=== PATIENT | female | born 1975 | race Caucasian/White ===

== ENCOUNTER 2023-06-10 01:30 | Emergency (ER) | payer MEDICAID, SELFPAY ==
[2023-06-10 01:31] VITALS: BP 140/108; PULSE 104; RESP 18; TEMP 36.7; O2SAT 100; BMI 25.2
--- NOTE | 2023-06-10 02:00 | RAD_ITS ---
INDICATION: pain EXAMINATION/TECHNIQUE: X-RAY - RIGHT XR Shoulder Min 2 Views COMPARISON: None. FINDINGS: SOFT TISSUES: Unremarkable. BONES/JOINTS: No fracture or dislocation. Mild degenerative changes of the acromioclavicular joint. No erosive changes. RAD/Shoulder min 2 Views IMPRESSION: Mild AC joint degenerative change. No acute abnormality. Electronically Signed: Peewee Carey DO at 2:24 EST ,
--- NOTE | 2023-06-10 04:57 | EX.ED.UPPERE ---
HPI History of Present Illness Chief Complaint: Upper Extremity Injury Informant: patient Narrative Narrative: Patient is a 48-year-old female who reports no significant past medical history. She states she is right-hand dominant. She reports for the past 7 to 10 days she has had pain in her right side neck/shoulder region that radiates down her arm to her wrist/fingers. She states that there has been no injury but that she does do repetitive motion at work. She states that she seen a chiropractor and has not had any symptom improvement with any adjustments and has been using the TENS unit without any symptom improvement as well. Secondary to the fact that the pain has persisted she presents for evaluation [facility] Medical History no medical history no medical history Home Medications gabapentin 100 mg capsule 100 mg PO TID 30 days #90 caps 06/10/23 [Rx Last Taken Unknown] methocarbamol 500 mg tablet 1,000 mg (2 x 500 mg) PO 4X/DAY PRN PRN Muscle pain/spasm 7 days #56 tabs 06/10/23 [Rx Last Taken Unknown] oxycodone-acetaminophen 5 mg-325 mg tablet (Percocet) 1 tab PO Q6H PRN pain 3 days #12 tabs 06/10/23 [Rx Last Taken Unknown] prednisone 20 mg tablet 40 mg (2 x 20 mg) PO DAILY 7 days #14 tabs 06/10/23 [Rx Last Taken Unknown] Allergy/AdvReac Type Severity Reaction Status Date / Time No Known Allergies Allergy Verified 06/10/23 01:31 Social History Smoking Status: Current every day smoker tobacco type: e-cigarettes ROS ROS ED Constitutional Constitutional ED: Denies chills or fever(s) ENT ENT ED: Denies sore throat Cardiovascular Cardiovascular: Denies chest pain Respiratory/Chest Respiratory/Chest: Denies cough or dyspnea Gastrointestinal Gastrointestinal: Denies abdominal pain, diarrhea, nausea or vomiting Genitourinary Genitourinary ED: Denies dysuria Musculoskeletal Musculoskeletal: Reports neck pain and other Details: Positive right arm/shoulder pain ; Denies myalgias Integumentary Denies rash Neurologic Neurologic: Reports paresthesias; Denies headache(s) or weakness Hematologic/Lymphatic Hematologic/Lymphatic: Denies easy bleeding or easy bruising EXAM Physical Exam Const Vital Signs: 06/10/23 01:31 Temperature 98.1 F Temperature Source Temporal Pulse Rate 104 H Respiratory Rate 18 Blood Pressure 140/108 H Blood Pressure Mean 118 Pulse Ox 100 Oxygen Delivery Method Room Air Positive well nourished and well developed General Appearance ED: well developed HEENT HEENT Narrative: Normocephalic atraumatic Eyes PERRL and EOMs intact bilaterally Neck Neck Narrative: No bony deformity or step-off of the cervical spine no midline pain with palpation Patient has right paracervical tension and spasm noted There is positive Spurling sign on the right Resp normal respiratory effort and clear to auscultation bilaterally Cardio regular rate and regular rhythm Back/Spine Back/Spine Narrative: No bony deformity or step-off of the thoracic or lumbar spine no midline pain with palpation Extremity normal to inspection Extremity Narrative: No bony deformity or joint effusion of the right shoulder joint negative sulcus sign Right upper extremity is neurovascularly intact; AIN/PIN are intact and normal Neuro oriented x3, CN's II-XII intact bilaterally, moves all extremities, no focal motor deficits and no sensory deficits noted Sensorium / Orientation: alert Motor Exam: strength 5/5 throughout Psych mental status grossly normal Skin no rashes or lesions noted MDM MDM MDM Narrative Medical decision making narrative: Patient presented to the ER complaining of right-sided shoulder/arm pain without reported trauma that has not improved despite chiropractic treatment and time. Differential diagnosis is for shoulder sprain/strain versus rotator cuff injury versus superficial cervical radiculopathy versus compressive nerve. An x-ray was obtained secondary to the persistent pain which revealed mild arthritis but no obvious finding. As she did have positive Spurling sign there is concern that this is cervical radiculopathy and whether it is related from superficial muscle compression or potential facet arthritis or a ruptured disc it would not change emergent treatment as she is neurovascular intact and would not require any type of emergent surgery or orthopedic/spine surgery emergent consultation. Therefore patient replaced on symptomatic medications and follow-up on an outpatient basis if there is no symptom improvement History & Record Review Discussion w/independent historian: Patient Radiography Diagnostic Testing: Clinical Impression(s) from Imaging Studies Shoulder X-Ray 06/10/23 02:00 IMPRESSION: Mild AC joint degenerative change. No acute abnormality. Electronically Signed: Peewee Carey DO at 2:24 EST , Right shoulder x-ray as interpreted by the emergency medicine physician reveals mild arthritic changes without acute fracture or dislocation or joint effusion Discharge Plan Triage Chief Complaint: Upper Extremity Injury ED Provider: Sarbjit Mcgarry Dx/Rx/DC Orders Clinical Impression: Cervical radiculopathy Instructions: Radiculopathy Cervical Prescriptions: New methocarbamol 500 mg tablet 1,000 mg PO 4X/DAY PRN PRN (Reason: Muscle pain/spasm) 7 Days Qty: 56 0RF prednisone 20 mg tablet 40 mg PO DAILY 7 Days Qty: 14 0RF oxycodone-acetaminophen [Percocet] 5-325 mg tablet 1 tab PO Q6H PRN (Reason: pain) 3 Days Qty: 12 0RF gabapentin 100 mg capsule 100 mg PO TID 30 Days Qty: 90 0RF Primary Care Provider: Care Physician,No Primary Referrals: Marcus Wheeler MD [Med Staff - Active Staff] - Care Physician,No Primary [Primary Care Provider] - Activity Restrictions/Additional Instructions: Take your medications as prescribed to help control symptoms. Your history and exam is most consistent with a pinched nerve either by muscle or potentially arthritis or a bulging disc in your neck. If your symptoms resolve with treatment there is no need for follow-up but if they persist talk your family doctor about potential MRI and/or physical therapy referral for further evaluation and treatment Disposition Disposition: Home, Self Care Discharge Date/Time: 06/10/23 06:00
[2023-06-10] MEDS: Ondansetron ODT 4 MG Tablet PO (05:19)
[2023-06-10] MEDS: Morphine 4 MG/ML Syringe 8 MG IM (05:20)
[2023-06-10] MEDS: Orphenadrine 60 MG/2 ML Ampul IM (05:25)
[2023-06-10] MEDS: Gabapentin 100 MG Capsule PO (05:26)
== END 2023-06-10 06:00 | disposition home or self-care (01) ==
PROVIDERS: Emergency Provider Emergency Medicine; Visit Provider Emergency Medicine
DX: M54.12 Radiculopathy, cervical region (principal); F17.290 Nicotine dependence, other tobacco product, uncomplicated; M79.601 Pain in right arm
CPT/HCPCS: 73030; 96372; 99283